=== PATIENT | male | born 1955 | race African-American/Black ===

== ENCOUNTER 2022-10-31 14:53 | Emergency (ER) | payer MEDICARE, OTHER ==
[~2022-10-31] VITALS: Ht 175.3 cm; Wt 65.9 kg
[2022-10-31 14:55] VITALS: TEMP 98
[2022-10-31] MEDS ORDERED: CA P PO (14:55)
[2022-10-31] MEDS ORDERED: LIDOCAINE 1% 10 ML VIAL SQ ONE (15:30)
[2022-10-31] MEDS ORDERED: PERTUSS(ACELL),DIPH,TET VAC/PF 0.5 ML SYRINGE IM. ONE (15:30)
[2022-10-31 15:37] VITALS: BP 152/91; PULSE 60; RESP 16
[2022-10-31] MEDS ORDERED: CEPHALEXIN MONOHYDRATE 500 MG CAPSULE PO ONE (16:15)
[2022-10-31] MEDS ORDERED: CEPH-558 PO (16:35)
== END 2022-10-31 16:40 | disposition home or self-care (01) ==
LOC: EMS 14:53
DX: S61.412A Laceration without foreign body of left hand, initial encounter (principal); Z23 Encounter for immunization; Z79.899 Other long term (current) drug therapy; W45.8XXA Other foreign body or object entering through skin, initial encounter; Y93.89 Activity, other specified; Y92.89 Other specified places as the place of occurrence of the external cause; Y99.8 Other external cause status
CPT/HCPCS: 99283; 73130; 90715; 90471; 12004; J3490